=== PATIENT | male | born 1935 | race Caucasian/White ===

== ENCOUNTER 2017-01-11 09:41 | Emergency (ER) | payer OTHER ==
[~2017-01-11] VITALS: Ht 170.2 cm; Wt 78.9 kg
[2017-01-11 11:38] VITALS: BP 149/82
== END 2017-01-11 11:39 | disposition home or self-care (01) ==
LOC: ED 09:41
DX: S80.01XA Contusion of right knee, initial encounter (principal); I10 Essential (primary) hypertension; W18.30XA Fall on same level, unspecified, initial encounter; Y93.89 Activity, other specified; Y99.8 Other external cause status; Y92.89 Other specified places as the place of occurrence of the external cause